=== PATIENT | female | born 1950 | race Asian ===

== ENCOUNTER 2019-11-05 16:14 | Inpatient (IN) | payer MEDICARE ==
[~2019-11-05] VITALS: Ht 157.5 cm; Wt 46.3 kg
--- NOTE | 2019-11-05 16:14 | NUR ---
PT BIBRA FROM HOME C/O N/V STARTED THIS MORNING, PT IS AAOX4, NOT IN RESPIRATORY DISTRESS, HOOKED TO MONITOR, KEPT RESTED AND COMFORTABLE, WILL CONTINUE TO MONITOR.
--- NOTE | 2019-11-05 16:25 | NUR ---
SEEN AND EXAMINED BY .
--- NOTE | 2019-11-05 16:40 | NUR ---
IV LINE ESTABLISHED, BLOOD DRAWN AND SENT TO LAB.
[2019-11-05 16:43] LABS: BASOPHILS % (AUTO) 0.1 % (0.0-2.0); HEMATOCRIT 42 % (33-45); HEMOGLOBIN 13.8 g/dL (11.5-14.8); LYMPHOCYTES % (AUTO) 10.2 % (20.0-44.0); MEAN CORPUSCULAR HGB CONC 33 g/dl (31.0-36.0); MEAN CORPUSCULAR VOLUME 95 fL (82-100); MONOCYTES # (AUTO) 0.1 /CMM (0.1-1.30); MONOCYTES % (AUTO) 0.9 % (2.0-12.0); NEUTROPHILS # (AUTO) 9.1 /CMM (1.8-8.9); NEUTROPHILS % (AUTO) 88.8 % (43.0-81.0); PLATELET COUNT (AUTO) 124 /CMM (150-450); RED BLOOD CELL COUNT(AUTO) 4.37 MIL/uL (4.0-5.2); WHITE BLOOD COUNT (AUTO) 10.2 K/uL (4.3-11.0)
--- NOTE | 2019-11-05 16:43 | NUR ---
NON LINEAR EDITOR AT BEDSIDE FOR XRAY.
[2019-11-05] MEDS ORDERED: ONDANSETRON HCL/PF 4 MG/2 ML VIAL ONE (16:55)
[2019-11-05] MEDS ORDERED: ONDANSETRON HCL/PF 4 MG/2 ML VIAL IV ONE (17:00)
[2019-11-05] MEDS ORDERED: IV NS 0.9% 1,000 ML BAG IV ONE (17:00)
[2019-11-05 17:06] LABS: CARBON DIOXIDE 24 mmol/L (21-32); CHLORIDE 103 mmol/L (98-107); CREATININE 0.8 mg/dL (0.6-1.3); GLUCOSE 193 mg/dL (74-106); POTASSIUM 3.3 mmol/L (3.5-5.1); SODIUM SERUM 140 mmol/L (136-145); UREA NITROGEN, BLOOD 17 mg/dL (7-18)
--- NOTE | 2019-11-05 17:15 | NUR ---
PT IS WHEELED TO CT SCAN VIA [facility]
[2019-11-05] MEDS ORDERED: MECLIZINE HCL 25 MG TABLET PO ONE (17:30)
--- NOTE | 2019-11-05 17:31 | NUR ---
AKUA GIVENS SON [phone]
[2019-11-05] MEDS ORDERED: MECLIZINE HCL 25 MG TABLET ONE (17:32)
[2019-11-05 17:38] LABS: CHOLESTEROL 221 mg/dL (<200); HDL CHOLESTEROL 102 mg/dL (40-60); LDL 114 mg/dL (0-99); TRIGLYCERIDES 39 mg/dL (30-150)
[2019-11-05] MEDS ORDERED: METOCLOPRAMIDE HCL 10 MG/2 ML VIAL ONE (17:48)
[2019-11-05] MEDS ORDERED: METOCLOPRAMIDE HCL 10 MG/2 ML VIAL IV ONE (18:00)
[2019-11-05] MEDS ORDERED: LORAZEPAM INJ 2 MG/ML VIAL IV ONE (18:00)
[2019-11-05] MEDS ORDERED: LORAZEPAM INJ 2 MG/ML VIAL ONE (18:52)
--- NOTE | 2019-11-05 19:15 | NUR ---
REPORT RECEIVED FROM KARINE RN FOR NATALY
--- NOTE | 2019-11-05 19:17 | NUR ---
REPORT GIVEN TO TANJA ALCANTARA FOR NATALY.
[2019-11-05] MEDS ORDERED: ENOXAPARIN SODIUM 40 MG/0.4 ML DISP.SYRIN SQ SCH (21:00)
[2019-11-05] MEDS ORDERED: LOSA50TA39 PO (21:05)
[2019-11-05] MEDS ORDERED: POTASSIUM CHLORIDE 20 MEQ TAB.PRT.SR PO ONE (21:30)
[2019-11-05 21:55] LABS: BASOPHILS % (AUTO) 0.3 % (0.0-2.0); HEMATOCRIT 37 % (33-45); HEMOGLOBIN 12.3 g/dL (11.5-14.8); LYMPHOCYTES % (AUTO) 11.3 % (20.0-44.0); MEAN CORPUSCULAR HGB CONC 34 g/dl (31.0-36.0); MEAN CORPUSCULAR VOLUME 95 fL (82-100); MONOCYTES # (AUTO) 0.1 /CMM (0.1-1.30); MONOCYTES % (AUTO) 1.7 % (2.0-12.0); NEUTROPHILS # (AUTO) 7.7 /CMM (1.8-8.9); NEUTROPHILS % (AUTO) 86.7 % (43.0-81.0); PLATELET COUNT (AUTO) 102 /CMM (150-450); RED BLOOD CELL COUNT(AUTO) 3.87 MIL/uL (4.0-5.2); WHITE BLOOD COUNT (AUTO) 8.9 K/uL (4.3-11.0)
[2019-11-05 22:00] VITALS: BP 128/61
--- NOTE | 2019-11-05 22:00 | NUR ---
distribution agent opening notes Received Pt from ER nurse. Pt arrived at the unit at 2200 with a gurtaiwo ad SHEELA protocol. Pt is alert and orientedX3. Respiration is normal. No SOB. No S/S of distress noted. IV sites at RAc# 18 is clean, intact, patent and flush without resistance. Oriented Pt to the room and the use of call light. VS is stable. Tele monitor showed SR HR at 85. Skin assessment is done and performed. Pt skin is intact. Pt's belonging was checked by PAUL Devlin. Pt's has money $ 170.00 and keep it in the safe at the nursing office. Received admission orders from . Safety precautions is maintained. Bed at low position, brakes locked, side rails upX3 and call light is within reach. Will continue to monitor. Addendum: 11/06/19 at 0728 by IVA RILEY RN distribution agenthead of commission department notes
--- NOTE | 2019-11-05 22:58 | NUR ---
p d driver notes Informed Dr. Amaro that Pt passed nursing swallow eval. Will continue to monitor.
--- NOTE | 2019-11-05 23:00 | NUR ---
shift supervisor melting notes Pt passed NIHSS stroke scale assessment. Charge nurse is aware and informed.
[2019-11-06] VITALS: BP 111/57
--- NOTE | 2019-11-06 02:30 | NUR ---
senior quality assurance analyst notes Informed Dr. Amaro about IV hydration. Received order from for 0.45% NS at 75 ml/hr. Order carried out. Will continue to monitor.
[2019-11-06] MEDS: IV 1/2NS 1000 ML 1,000 ML IV PRN ×2 (02:57→22:11)
[2019-11-06 04:00] VITALS: BP 128/61
[2019-11-06 04:24] VITALS: BP 118/59
--- NOTE | 2019-11-06 06:40 | NUR ---
experimental display builder closing notes Pt is sleeping in bed comfortably. Pt is alert and orientedx3. Respiration is normal in room air. No SOB. No S/S of distress noted. IV sites at RAC# 18 is clean, intact, patent and infusing well 0.45% NS @ 75 ml/hr. VS is stable. Tele monitor showed SR HR at 60. Kept Pt clean, dry and comfortable. All needs met and attended. Safety precautions is maintained. Bed at low position, brakes locked, side rails upX3 and call light is within reach. Will endorse to morning nurse for NATALY.
[2019-11-06 07:07] LABS: ALBUMIN 3.1 g/dL (3.4-5.0); BILIRUBIN,TOTAL 0.6 mg/dL (0.2-1.0); CALCIUM, SERUM 8.4 mg/dL (8.5-10.1); CREATININE 0.7 mg/dL (0.6-1.3); POTASSIUM 3.7 mmol/L (3.5-5.1); TOTAL PROTEIN, SERUM 6.5 g/dL (6.4-8.2)
[2019-11-06 07:09] LABS: THYROID STIMULATING HORMONE 0.805 uIU/mL (0.358-3.74)
[2019-11-06 08:00] VITALS: BP 110/63
--- NOTE | 2019-11-06 08:00 | NUR ---
PAYROLL ADMINISTRATIVE ASSISTANT OPENING NOTES Received Patient awake and resting in bed. A/O x 3. VS stable with no acute distress. Breathing even and unlabored on room air with no respiratory distress. Denies pain. Telemonitor in place and patent reading SR with HR-60. 18g PIV on RAC clean, intact, patent and flushing well with 1/2NS infusing at 75ml/hr. Safety precautions in place. Bed locked and set to lowest position with side rails x 2 up. All needs rendered at this time. Call light within reach. Will continue to monitor.
[2019-11-06] MEDS: PANTOPRAZOLE 40 MG TABLET.DR PO SCH (08:37)
[2019-11-06] MEDS: MECLIZINE HCL 12.5 MG TABLET PO SCH ×3 (08:37→16:48)
[2019-11-06] MEDS: ASPIRIN EC 81 MG TABLET.DR PO SCH (08:37)
--- NOTE | 2019-11-06 08:53 | NUR ---
MS RN NOTES PATIENT SEEN BY DR. AMBROSIO WITH ORDER FOR D/C TELE.
[2019-11-06] MEDS ORDERED: CALC-7 PO (10:52)
--- NOTE | 2019-11-06 12:04 | NUR ---
Social service consult requested by MD for post stroke protocol. Per chart review and MD notes, pt is a 69-year-old Female with a history of hypertension, presented to the ED for evaluation of dizziness with nausea and vomiting since this morning. GAUGE MACHINE OPERATOR met with pt and her bedside. GAUGE MACHINE OPERATOR introduced self, explained role of SW and purpose of visit. Pt is alert and oriented x 4 and pleasant. Pt lives at home with her . Pt reports to be independent with most of her ADL's at this time. Pt denies feeling depressed or SI/HI. Pt stated that overall dizziness has decreased a lot but feels some heaviness over her eyes. Pt reports she hasn't had much of an appetite but is able to drink juice. Pt to be evaluated by Physical Therapy. No other social service needs requested at this time. GAUGE MACHINE OPERATOR is available, if needed.
[2019-11-06] MEDS ORDERED: DIAZEPAM 5 MG TABLET PO PRN (12:30)
[2019-11-06 12:46] LABS: APPEARANCE,URINE CLEAR (CLEAR); BILIRUBIN,URINE NEGATIVE (NEGATIVE); BLOOD, URINE TRACE-INTA Ery/uL (NEGATIVE); COLOR,URINE YELLOW (YELLOW); KETONES,URINE 15 (NEGATIVE); LEUKOCYTE ESTERASE ,URINE NEGATIVE (NEGATIVE); NITRITE, URINE NEGATIVE (NEGATIVE); PROTEIN,URINE NEGATIVE (NEGATIVE); UGLUCOSE NEGATIVE (NEGATIVE); UROBILINOGEN,URINE 0.2 EU/dL (0.2)
--- NOTE | 2019-11-06 13:18 | NUR ---
MS RN NOTES Patient accidentally dropped Meclizine 25mg tablets on floor. Discarded dropped medications and readministered. Patient in stable condition. Will continue to monitor.
[2019-11-06 14:21] LABS: BACTERIA,URINE Few /HPF (None Seen); RBC,URINE 0-2 /HPF (0-2); SQUAMOUS EPITHELIAL CELL,UR Few /HPF (None Seen)
[2019-11-06 16:00] VITALS: BP 109/52
--- NOTE | 2019-11-06 18:50 | NUR ---
MS RN CLOSING NOTES Patient awake and resting in bed. A/O x 3. VS stable with no acute distress. Breathing even and unlabored on room air with no respiratory distress. Denies pain. 18g PIV on RAC clean, intact, patent and flushing well with 1/2NS infusing at 75ml/hr. Safety precautions in place. Bed locked and set to lowest position with side rails x 2 up. All needs rendered at this time. Call light within reach. Will endorse plan of care to oncoming shift.
[2019-11-06 20:00] VITALS: BP 97/48
--- NOTE | 2019-11-06 20:12 | NUR ---
MS RN NOTES RECEIVED PATIENT AWAKE IN BED WITH NO DISTRESS NOTED. CALL LIGHT WITHIN REACH. NO C/O PAIN OR DISCOMFORT. PERIPHERAL LINE INTACT AND PATENT. ROOM FREE OF CLUTTER AND BELONGINGS KEPT NEAR BEDSIDE. BED IN LOW LOCK SETTING WITH BED ALARM ON AND FUNCTIONING PROPERLY. WILL CONTINUE TO MONITOR
--- NOTE | 2019-11-07 06:51 | NUR ---
MS RN NOTES PATIENT ASLEEP IN BED WITH NO DISTRESS NOTED. CALL LIGHT WITHIN REACH. NO C/O PAIN OR DISCOMFORT. PIV INTACT AND PATENT. BED IN LOW LOCK SETTING WITH BED ALARM ON AND FUNCTIONING PROPERLY. ALL BELONGINGS KEPT NEAR BEDSIDE. WILL ENDORSE TO ONCOMING SHIFT.
--- NOTE | 2019-11-07 07:46 | NUR ---
MS RN OPENING NOTES Patient asleep and resting in bed. A/O x 3. VS stable with no acute distress. Breathing even and unlabored on room air with no respiratory distress. Denies pain. 18g PIV on RAC clean, intact, patent and flushing well with 1/2NS infusing at 75ml/hr. Safety precautions in place. Bed locked and set to lowest position with side rails x 2 up. All needs rendered at this time. Call light within reach. Will continue to monitor.
[2019-11-07 08:00] VITALS: BP 121/64
[2019-11-07] MEDS: ASPIRIN EC 81 MG TABLET.DR PO SCH (08:36)
[2019-11-07] MEDS: PANTOPRAZOLE 40 MG TABLET.DR PO SCH (08:36)
[2019-11-07] MEDS: MECLIZINE HCL 12.5 MG TABLET PO SCH ×3 (08:36→16:38)
[2019-11-07 16:02] VITALS: BP 132/62
[2019-11-07] MEDS ORDERED: DIAZ5TAB4 PO (17:03)
[2019-11-07] MEDS ORDERED: MECL-182 PO (17:03)
[2019-11-07] MEDS ORDERED: ASPI-1152 PO (17:03)
--- NOTE | 2019-11-07 18:44 | NUR ---
MS DIRECTOR OF HEALTH CARE MARKETING NOTES Patient discharged for home at this time. Patient in stable condition. VS stable with no acute distress. Breathing even and unlabored on room air with no respiratory distress. Denies pain. Skin intact. Medication reconciliation and discharge orders reviewed and explained to Patient. Patient verbalized understanding. All belongings with Patient. Patient will follow up with PCP in 1 week. Escorted Patient to the Lobby for safety. Patient picked up by son.
== END 2019-11-07 19:00 | disposition home or self-care (01) | DRG 149 ==
LOC: ER 16:17 → TELE 21:00 → MED 11-06 08:58
PROVIDERS: ADMIT Student in an Organized Health Care Education/Training Program; ATTEND Nurse Practitioner Acute Care
DX: H81.10 Benign paroxysmal vertigo, unspecified ear (principal); J98.11 Atelectasis; I10 Essential (primary) hypertension; E87.6 Hypokalemia; D69.6 Thrombocytopenia, unspecified
CPT/HCPCS: 36415; 70450-TC; 71045-TC; 80048-TC; 80053-TC; 80061-TC; 81000-TC; 84443-TC; 84484-TC; 85025-TC; 85730-TC; 87081-TC; 92611-TC; 93307-TC; 93880-TC; 97116-TC; 97530-TC; A4216; G0378; J2060; J2405; J2765; J3490; J7030; J8597